=== PATIENT | male | born 1965 | race Caucasian/White ===

== ENCOUNTER 2019-03-13 17:08 | Emergency (ER) | payer BC ==
[2019-03-13 17:22] VITALS: BP 122/66
[2019-03-13] MEDS ORDERED: PERCOCET 5/325M1 TAB PO (17:22)
[2019-03-13] MEDS ORDERED: AMOXICILLIN500 MG PO (17:22)
== END 2019-03-13 17:47 | disposition home or self-care (01) | DRG 159 ==
LOC: ED 17:08
DX: K08.89 Other specified disorders of teeth and supporting structures (principal)